=== PATIENT | female | born 1960 | race American Indian/Alaskan Native ===

== ENCOUNTER 2018-02-17 22:42 | Emergency (ER) | payer OTHER ==
[2018-02-18 01:01] LABS: Basophils # (Auto) 0.1 K/mm3 (0.0-0.1); Basophils % (Auto) 0.6 % (0.0-1.8); Eosinophils # (Auto) 0.6 K/mm3 (0.0-0.4); Eosinophils % (Auto) 6.1 % (0.0-4.3); Hematocrit 33.9 % (30.3-42.9); Hemoglobin 10.9 gm/dl (10.1-14.3); Lymphocytes # (Auto) 3.2 K/mm3 (1.2-5.4); Mean Corpuscular HGB Conc 32 % (30-34); Mean Corpuscular Volume 77 fl (79-97); Monocytes # (Auto) 0.6 K/mm3 (0.0-0.8); Monocytes % (Auto) 6.5 % (0.0-7.3); Platelet Count 309 K/mm3 (140-440); Red Blood Count 4.43 M/mm3 (3.65-5.03); Red Cell Distribution Width 18.3 % (13.2-15.2)
[2018-02-18 01:04] LABS: Bilirubin,Urine NEG (Negative); Blood,Urine NEG (Negative); Color,Urine Yellow (Yellow); Mucus,Urine FEW /HPF; Protein,Urine <15 mg/dL mg/dL (Negative); RBC,Urine < 1.0 /HPF (0.0-6.0); Urobilinogen,Urine < 2.0 mg/dL (<2.0)
[2018-02-18 01:11] LABS: Alanine Aminotransferase 25 units/L (7-56); Albumin 3.8 g/dL (3.9-5); BUN/Creatinine Ratio 22; Blood Urea Nitrogen 13 mg/dL (7-17); Calcium 9.3 mg/dL (8.4-10.2); Hemolysis Index 10; Lipase 24 units/L (13-60)
[2018-02-18 01:18] LABS: INR 0.84 (0.87-1.13); Mean Corpuscular Hemoglobin 25 pg (28-32); Partial Thromboplastin Time 29.7 Sec. (24.2-36.6)
[2018-02-18 01:20] LABS: WBC,Urine < 1.0 /HPF (0.0-6.0)
--- NOTE | 2018-02-18 08:15 | Emergency Department Report ---
ED Abdominal Pain HPI - General Chief Complaint: Abdominal Pain Stated Complaint: ABDOMINAL PAIN Time Seen by Provider: 02/18/18 08:05 Source: family Mode of arrival: Ambulatory Limitations: Language Barrier, Other - History of Present Illness Initial Comments: This is a patient that is poorly verbal and recently transferred home from a nursing facility. She had a previous G-tube removed and a history of a related fistula which essentially closed. She's had a hysterectomy and another upper abdominal surgery unknown nature to her daughter. She presented to the emergency department today, she was rubbing her chest and abdomen and complaining of pain. She cannot speak in full sentences however she does point to her abdomen when asked where she is hurting. She is basically able to say abdomen but not provide any more history beyond this. She has not been vomiting. There has been no fever or chills. She's had no diarrhea or change in her bowel habits. There's been no observed shortness of breath or complaint thereof. MD Complaint: abdominal pain Severity scale (0 -10): 10 - Related Data Previous Rx's Medication Instructions Recorded Last Taken Type Famotidine [Pepcid] 20 mg PO BID #30 tablet 02/18/18 Unknown Rx traMADol [Ultram] 50 mg PO Q6HR PRN #20 tablet 02/18/18 Unknown Rx Allergies Allergy/AdvReac Type Severity Reaction Status Date / Time No Known Allergies Allergy Unverified 02/17/18 23:28 ED Review of Systems ROS: Stated complaint: ABDOMINAL PAIN Other details as noted in HPI Comment: Unobtainable due to pts medical conditions ED Past Medical Hx - Past Medical History Previous Medical History?: Yes Hx Hypertension: Yes Hx CVA: Yes (aphasic, Left side tremors, Dysphagia) Hx Heart Attack/AMI: Yes (Stents?) Hx Diabetes: Yes Hx GERD: Yes Hx Psychiatric Treatment: Yes (depression, schizo affective) Additional medical history: AFIB, Lives with sister who takes care of her, Abdominal Fistula, Takes Plavix and ASA - Surgical History Past Surgical History?: Yes Additional Surgical History: Abdominal Fistula with clips placed 2016 - Social History Smoking Status: Former Smoker Substance Use Type: None - Medications Home Medications: Home Medications Medication Instructions Recorded Confirmed Last Taken Type Famotidine [Pepcid] 20 mg PO BID #30 tablet 02/18/18 Unknown Rx traMADol [Ultram] 50 mg PO Q6HR PRN #20 tablet 02/18/18 Unknown Rx ED Physical Exam - General Limitations: Language Barrier (dysarthric) General appearance: alert, in no apparent distress - Head Head exam: Present: atraumatic, normocephalic - Eye Eye exam: Present: normal appearance - ENT ENT exam: Present: mucous membranes moist - Neck Neck exam: Present: normal inspection - Respiratory Respiratory exam: Present: normal lung sounds bilaterally. Absent: respiratory distress - Cardiovascular Cardiovascular Exam: Present: regular rate, normal rhythm. Absent: systolic murmur, diastolic murmur, rubs, gallop - GI/Abdominal GI/Abdominal exam: Present: soft, normal bowel sounds. Absent: distended, tenderness, guarding, rebound, rigid - Extremities Exam Extremities exam: Present: normal inspection - Back Exam Back exam: Present: normal inspection - Neurological Exam Neurological exam: Present: alert, CN II-XII intact (as testable), other (no acute focal deficit) - Psychiatric Psychiatric exam: Present: normal mood, flat affect - Skin Skin exam: Present: warm, dry, intact, normal color. Absent: rash ED Course Vital Signs 02/17/18 02/17/18 02/17/18 22:49 23:03 23:40 Temperature 98.6 F Pulse Rate 79 95 H 79 Respiratory 18 Rate Blood Pressure 139/90 96/47 139/80 Blood Pressure [Left] O2 Sat by Pulse 96 100 96 Oximetry 02/18/18 02/18/18 02/18/18 07:58 08:00 08:08 Temperature 98.3 F Pulse Rate 77 Respiratory 21 Rate Blood Pressure Blood Pressure 156/87 [Left] O2 Sat by Pulse 100 98 Oximetry 02/18/18 02/18/18 02/18/18 08:09 08:16 08:30 Temperature Pulse Rate 78 71 Respiratory 21 15 12 Rate Blood Pressure 156/87 156/87 Blood Pressure [Left] O2 Sat by Pulse 98 99 100 Oximetry 02/18/18 02/18/18 02/18/18 08:46 09:03 09:16 Temperature Pulse Rate 79 97 H 79 Respiratory 14 20 Rate Blood Pressure 156/87 156/87 156/87 Blood Pressure [Left] O2 Sat by Pulse 98 97 98 Oximetry 02/18/18 02/18/18 02/18/18 09:30 10:00 11:00 Temperature Pulse Rate 74 Respiratory 13 Rate Blood Pressure 156/87 128/75 125/78 Blood Pressure [Left] O2 Sat by Pulse 96 96 97 Oximetry - Reevaluation(s) Reevaluation #1: Patient essentially rested comfortably and did not require significant analgesia. She remained hemodynamically stable. Her laboratory testing did not identify any acute abnormality. She is mildly anemic but otherwise 3 troponins were negative and a double contrasted CT of the abdomen and pelvis was negative. The patient is appropriate for outpatient follow-up and referral. 02/18/18 12:50 ED Medical Decision Making - Lab Data Result diagrams: 02/18/18 00:24 02/18/18 00:24 Laboratory Results - last 24 hr 02/18/18 02/18/18 02/18/18 00:24 00:24 00:24 WBC 9.2 RBC 4.43 Hgb 10.9 Hct 33.9 MCV 77 L MCH 25 L MCHC 32 RDW 18.3 H Plt Count 309 Lymph % (Auto) 35.0 [place] % (Auto) 6.5 Eos % (Auto) 6.1 H Baso % (Auto) 0.6 Lymph # 3.2 [place] # 0.6 Eos # 0.6 H Baso # 0.1 Seg Neutrophils % 51.8 Seg Neutrophils # 4.7 PT 11.9 L INR 0.84 L APTT 29.7 Sodium 142 Potassium 3.7 Chloride 102.6 Carbon Dioxide 23 Anion Gap 20 BUN 13 Creatinine 0.6 L Estimated GFR > 60 BUN/Creatinine Ratio 22 Glucose 71 Calcium 9.3 Total Bilirubin 0.20 AST 35 ALT 25 Alkaline Phosphatase 109 Troponin T Total Protein 6.6 Albumin 3.8 L Albumin/Globulin Ratio 1.4 Lipase 24 Urine Color Urine Turbidity Urine pH Ur Specific [place] Urine Protein Urine Glucose (UA) Urine Ketones Urine Blood Urine Nitrite Urine Bilirubin Urine Urobilinogen Ur Leukocyte Esterase Urine WBC (Auto) Urine RBC (Auto) Urine Mucus 02/18/18 02/18/18 02/18/18 00:24 00:29 03:17 WBC RBC Hgb Hct MCV MCH MCHC RDW Plt Count Lymph % (Auto) [place] % (Auto) Eos % (Auto) Baso % (Auto) Lymph # [place] # Eos # Baso # Seg Neutrophils % Seg Neutrophils # PT INR APTT Sodium Potassium Chloride Carbon Dioxide Anion Gap BUN Creatinine Estimated GFR BUN/Creatinine Ratio Glucose Calcium Total Bilirubin AST ALT Alkaline Phosphatase Troponin T < 0.010 < 0.010 Total Protein Albumin Albumin/Globulin Ratio Lipase Urine Color Yellow Urine Turbidity Clear Urine pH 6.0 Ur Specific [place] 1.010 Urine Protein <15 mg/dl Urine Glucose (UA) Neg Urine Ketones Neg Urine Blood Neg Urine Nitrite Neg Urine Bilirubin Neg Urine Urobilinogen < 2.0 Ur Leukocyte Esterase Neg Urine WBC (Auto) < 1.0 Urine RBC (Auto) < 1.0 Urine Mucus Few 02/18/18 05:42 WBC RBC Hgb Hct MCV MCH MCHC RDW Plt Count Lymph % (Auto) [place] % (Auto) Eos % (Auto) Baso % (Auto) Lymph # [place] # Eos # Baso # Seg Neutrophils % Seg Neutrophils # PT INR APTT Sodium Potassium Chloride Carbon Dioxide Anion Gap BUN Creatinine Estimated GFR BUN/Creatinine Ratio Glucose Calcium Total Bilirubin AST ALT Alkaline Phosphatase Troponin T < 0.010 Total Protein Albumin Albumin/Globulin Ratio Lipase Urine Color Urine Turbidity Urine pH Ur Specific [place] Urine Protein Urine Glucose (UA) Urine Ketones Urine Blood Urine Nitrite Urine Bilirubin Urine Urobilinogen Ur Leukocyte Esterase Urine WBC (Auto) Urine RBC (Auto) Urine Mucus - EKG Data -: EKG Interpreted by Or EKG shows normal: sinus rhythm, axis, intervals, QRS complexes, ST-T waves Rate: normal - EKG Data Interpretation: nonspecific ST-T wave adamaris (mild) - Radiology Data Radiology results: report reviewed Critical care attestation.: If time is entered above; I have spent that time in minutes in the direct care of this critically ill patient, excluding procedure time. ED Disposition Clinical Impression: Abdominal pain Qualifiers: Abdominal location: generalized Qualified Code(s): R10.84 - Generalized abdominal pain Anemia Qualifiers: Anemia type: unspecified type Qualified Code(s): D64.9 - Anemia, unspecified Disposition: DC-01 TO HOME OR SELFCARE Is pt being admited?: No Does the pt Need Aspirin: No Condition: Stable Instructions: Abdominal Pain (ED), Iron Rich Diet (ED), Anemia (ED) Additional Instructions: The patient's CT examination today was normal. She is mildly chronically anemic. An iron rich diet is recommended and/or supplemental iron. Further evaluation with a GI doctor is recommended. I am referring her to Dr. Gaspar is a primary care doctor and Dr. Barrientos a GI specialist doctor. Return to the emergency department any acute change or problem as needed. Prescriptions: Famotidine [Pepcid] 20 mg PO BID #30 tablet traMADol [Ultram] 50 mg PO Q6HR PRN #20 tablet PRN Reason: Pain Referrals: PRIMARY CARE, [Primary Care Provider] - 3-5 Days JUA NRAMON BARRIENTOS MD [Staff Physician] - 3-5 Days ELISABET MOLINA MD [Staff Physician] - 2-3 Days Time of Disposition: 12:56
[2018-02-18] MEDS ORDERED: MORPHINE IV ONE (08:47)
[2018-02-18] MEDS ORDERED: NACL 0.9% 1000 ML 1,000 ML IV ONE (08:47)
[2018-02-18] MEDS ORDERED: ZOFRAN IV ONE (08:47)
[2018-02-18] MEDS ORDERED: ATIVAN IV ONE (08:47)
--- NOTE | 2018-02-18 11:29 | Cat Scan Report ---
FINAL REPORT EXAM: CT ABDOMEN PELVIS W CON HISTORY: abd pain h/o fistula and g tube COMPARISON: None. TECHNIQUE: Multiple contiguous axial images were obtained from the lung bases to the pubic symphysis after administration of IV and oral contrast. Reformatted sagittal and coronal images were available for review. FINDINGS: Lung bases: Minimal dependent atelectasis. Visualized heart and mediastinum: Normal. Liver: Normal. Spleen: Normal. Pancreas: Normal. Gallbladder and Biliary Tree: No calcified gallstones. No biliary ductal dilatation. Adrenal glands: Normal. Kidneys: There an extrarenal pelvis bilaterally. There is symmetric enhancement to both kidneys. There is a simple appearing 2.9 centimeters cyst the interpolar region of the left kidney. Bladder: Normal. Pelvic organs: The uterus has been surgically removed. Bowel: Gastrostomy tube is in place. No focal wall thickening. No evidence of obstruction. Oral contrast advances to the distal ileum. The appendix is not clearly identified and may have been removed. There are no pericecal inflammatory changes. Peritoneum: No significant mesenteric adenopathy. No free air or free fluid. Vasculature: Abdominal aorta is normal in caliber without evidence of aneurysm. Scattered atherosclerotic calcifications and plaques. Normal appearance of the portal venous system and the inferior vena cava. Bones and soft tissues: No suspicious osseous lesions. Diffuse osteopenia. No acute fracture or dislocation.Midline abdominal scar is visualized. IMPRESSION: No acute intra-abdominal pathology. No evidence of bowel obstruction.
[2018-02-18 13:52] VITALS: BP 113/71
== END 2018-02-18 13:15 | disposition home or self-care (01) ==
LOC: ED 22:42
DX: D64.9 Anemia, unspecified (principal); R10.9 Unspecified abdominal pain; I10 Essential (primary) hypertension; F32.9 Major depressive disorder, single episode, unspecified; E11.9 Type 2 diabetes mellitus without complications; K21.9 Gastro-esophageal reflux disease without esophagitis; I25.2 Old myocardial infarction; Z87.891 Personal history of nicotine dependence; Z86.73 Personal history of transient ischemic attack (TIA), and cerebral infarction without residual deficits; Z90.710 Acquired absence of both cervix and uterus
CPT/HCPCS: 36415; 74177; 80053; 81001; 83690; 84484; 85025; 85610; 85730; 93005; 93010; 96361; 96374; 96375; 99284; J2060; J2270; J2405; J7030; Q9967

== ENCOUNTER 2018-08-05 06:15 | Day surgery (SDC) | payer MEDICAID, SELFPAY ==
--- NOTE | 2018-08-05 07:51 | Anesthesia Consultation ---
Anesthesia Consult and Med Hx Date of service: 08/05/18 - Airway Anesthetic Teeth Evaluation: Poor ROM Head & Neck: Adequate Mental/Hyoid Distance: Adequate Mallampati Class: Class II Intubation Access Assessment: Probably Good - Pulmonary Exam CTA: Yes - Cardiac Exam Cardiac Exam: RRR - Pre-Operative Health Status ASA Pre-Surgery Classification: ASA3 Proposed Anesthetic Plan: MAC - Cardiovascular System Hx Hypertension: Yes Hx Coronary Artery Disease: Yes Hx Heart Attack/AMI: Yes Hx Percutaneous Transluminal Coronary Angioplasty (PTCA): Yes (2009) Hx Cardia Arrhythmia: Yes (afib) - Central Nervous System Hx Seizures: Yes ("many years ago") CVA: Yes (2012, left hand spastic, general weak) Hx Psychiatric Problems: Yes (tardive dyskinsia ) - Gastrointestinal Hx Gastroesophageal Reflux Disease: Yes - Endocrine Hx Non-Insulin Dependent Diabetes: Yes
--- NOTE | 2018-08-05 07:51 | Anesthesia Day of Surgery ---
Anesthesia Day of Surgery - Day of Surgery Patient Examined: Yes Patient H&P Reviewed: Yes Patient is NPO: Yes Beta Blockers: Yes
[2018-08-05] MEDS ORDERED: NACL 0.9% 1000 ML 1,000 ML IV SCH (08:00)
[2018-08-05] MEDS ORDERED: DIPRIVAN 10 MG/ML IV ONE (09:17)
--- NOTE | 2018-08-05 09:49 | Short Stay Summary ---
Short Stay Documentation Date of service: 08/05/18 Narrative H&P: The patient presents for diagnostic EGD for persistent abdominal pain and the possibility of a retained G tube bumper by CT scan. - History Past Medical History: CAD, diabetes, GERD, stroke, other (dementia, history of CVA, ) Past Surgical History: Other (Gastrostomy) Social history: lives with family, no smoking, no alcohol abuse, no prescription drug abuse - Allergies and Medications Current Medications: Allergies No Known Allergies Allergy (Verified 08/05/18 07:57) Home Medications Medication Instructions Recorded Confirmed Last Taken Type Adult Low Dose Aspirin EC 81 mg PO DAILY 08/05/18 08/05/18 08/03/18 History AtorvaSTATin 40 mg PO DAILY 08/05/18 08/05/18 08/03/18 History Depakote 250 mg PO BID 08/05/18 08/05/18 08/03/18 History Lisinopril 1 tab PO DAILY 08/05/18 08/05/18 08/03/18 History Metoprolol 25 mg PO BID 08/05/18 08/05/18 08/03/18 History Plavix 75 mg PO DAILY 08/05/18 08/05/18 08/02/18 History Ranitidine HCl 150 mg PO BID 08/05/18 08/05/18 08/03/18 History metFORMIN 1,000 mg PO BID 08/05/18 08/05/18 08/03/18 History Active Medications Sodium Chloride (Nacl 0.9% 1000 Ml) 1,000 mls @ 50 mls/hr IV DIRECT KIRSTEN Last Admin: 08/05/18 08:35 Dose: 50 mls/hr - Physical exam General appearance: no acute distress, well-nourished Integumentary: no rash, no growths, no abnormal pigmentation HEENT: Atraumatic, PERRLA, EOMI, Mucous membr. moist/pink Lungs: Clear to auscultation, Normal air movement Breasts: deferred Heart: Regular rate, Normal S1, Normal S2, No murmurs Gastrointestinal: normoactive bowel sounds, tenderness (around a small fistula at the old G tube site), no distended, no masses, no organomegaly Female Genitourinary: deferred Rectal Exam: deferred Extremities: no ischemia, pulses intact, pulses symmetrical, No edema, Full ROM Neurological: Normal gait, Normal speech, Strength at 5/5 X4 ext, Normal tone, Sensation intact, Cranial nerves 3-12 NL, Other (speech is slow and cognition moderately impaired.) - Brief post op/procedure progress note Date of procedure: 08/05/18 Findings: see dictated report Estimated blood loss: none Pathology: none Condition: stable - Disposition Condition at discharge: Good Disposition: DC-01 TO HOME OR SELFCARE - Discharge Diagnoses (1) Epigastric pain Status: Acute (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
--- NOTE | 2018-08-05 09:56 | Operative Report ---
Operative Report Operative Report: Date of procedure: 08/05/2018 Procedure: Esophagogastroduodenoscopy Preprocedure diagnosis: Abdominal pain epigastric. Gastrocutaneous fistula and suspected retained G-tube bumper Post procedure diagnosis: Retained G-tube bumper was seen internally with sutures and a metallic clip Endoscopist: Dr. Guido Anesthesia: Monitored anesthesia care per anesthesia department Medications: Propofol per anesthesia Estimated blood loss: 0 After careful discussion of the nature and purpose of the procedure as well as details the technique risks benefits and alternatives consent was obtained. The patient was placed in the left lateral decubitus position and medicated per anesthesia. The tip of the geolad EQ 570 video scope was passed per orum under direct vision into the esophagus and advanced into the stomach and descending duodenum. The descending duodenum the duodenal bulb and pylorus were symmetrical and normal. The scope was withdrawn into the stomach and the stomach then gently insufflated with air. The antrum was normal. On the anterior wall of the distal body there were 2 areas were abnormal. The tip of the G-tube with sutures was noted and an adjacent area with an apparent over the scope type clip which appeared to be encompassing a portion of an old G- tube. No visible G-tube bumper was evident however. The clip was briefly removed with the sepsis and it was apparent that the clip was not attached to the mucosa but to the tip of the old G-tube fragment. This was not felt to be removable due to apparent sutures. The stomach was further insufflated and the scope was then retroflexed and partially withdrawn. The cardia, fundus, and body of the stomach were otherwise within normal limits and easily distensible.The scope was then withdrawn in the forward position. The esophagogastric junction was at 38 cm. The esophageal body was normal throughout. The procedure was was well tolerated and the patient was observed in recovery. Impressions: Retained portion of a G-tube anchored with sutures and a metallic clip attached to a fragment of a G-tube in an adjacent area. I suspect the 2 areas are connected fragments of an old gastrostomy tube. Plan: Surgical evaluation for removal of the anchored G-tube fragment by gastrotomy or laparoscopic approach. Electronically signed: Rashel Guido MD
[2018-08-05] MEDS ORDERED: WATER FOR IRRIG STERILE IR ONE (10:04)
[2018-08-05 10:26] VITALS: BP 108/75
== END 2018-08-05 06:16 | disposition home or self-care (01) ==
LOC: GIO 06:15
PROVIDERS: ATTEND Internal Medicine Gastroenterology
DX: R10.13 Epigastric pain (principal); R93.3 Abnormal findings on diagnostic imaging of other parts of digestive tract; K31.6 Fistula of stomach and duodenum; I25.10 Atherosclerotic heart disease of native coronary artery without angina pectoris; I25.2 Old myocardial infarction; I48.91 Unspecified atrial fibrillation; I10 Essential (primary) hypertension; K21.9 Gastro-esophageal reflux disease without esophagitis; E11.9 Type 2 diabetes mellitus without complications; Z98.890 Other specified postprocedural states; Z87.891 Personal history of nicotine dependence; Z79.84 Long term (current) use of oral hypoglycemic drugs; Z79.899 Other long term (current) drug therapy; Z86.73 Personal history of transient ischemic attack (TIA), and cerebral infarction without residual deficits
CPT/HCPCS: 43235; 82962; J2704; J7030

== ENCOUNTER 2019-07-27 09:20 | Outpatient (CLI) | payer MEDICAID | END 2019-07-27 09:21 | disposition home or self-care (01) | LOC: WOUND 09:20 | PROVIDERS: ATTEND Surgery | DX: T81.89XD Other complications of procedures, not elsewhere classified, subsequent encounter (principal); E10.9 Type 1 diabetes mellitus without complications; Z86.73 Personal history of transient ischemic attack (TIA), and cerebral infarction without residual deficits; Z87.891 Personal history of nicotine dependence; Y83.8 Other surgical procedures as the cause of abnormal reaction of the patient, or of later complication, without mention of misadventure at the time of the procedure | CPT/HCPCS: 99213; G0463 ==

== ENCOUNTER 2019-08-17 09:10 | Outpatient (CLI) | payer MEDICAID ==
[2019-08-17] MEDS ORDERED: XYLOCAINE TOPICAL 4% TP ONE (09:30)
== END 2019-08-17 09:11 | disposition home or self-care (01) ==
LOC: WOUND 09:10
PROVIDERS: ATTEND Surgery
DX: T81.89XD Other complications of procedures, not elsewhere classified, subsequent encounter (principal); E10.9 Type 1 diabetes mellitus without complications; Z87.891 Personal history of nicotine dependence; Z86.73 Personal history of transient ischemic attack (TIA), and cerebral infarction without residual deficits; X58.XXXD Exposure to other specified factors, subsequent encounter
CPT/HCPCS: 99213; G0463; G0463-25

== ENCOUNTER 2019-08-24 09:57 | Outpatient (CLI) | payer MEDICAID ==
[2019-08-24] MEDS ORDERED: SILVER NITRATE APPLICATOR 1 EA TP ONE (10:18)
[2019-08-24] MEDS ORDERED: NEOMY 3.5 MG/BACIT 400 UNITS/POLY B 5000 UNITS/GM OINT PACKET TP ONE (10:21)
[2019-08-24] MEDS ORDERED: LIDOCAINE (4%) 40 MG/ML TOPICAL SOLN 50 ML BOTTLE TP ONE (10:30)
[2019-08-24] MEDS ORDERED: NEOMY 3.5 MG/BACIT 400 UNITS/POLY B 5000 UNITS OINT 15 GM TP SCH (14:00)
== END 2019-08-24 09:58 | disposition home or self-care (01) ==
LOC: WOUND 09:57
PROVIDERS: ATTEND Surgery
DX: T81.89XD Other complications of procedures, not elsewhere classified, subsequent encounter (principal); E10.9 Type 1 diabetes mellitus without complications; Z86.73 Personal history of transient ischemic attack (TIA), and cerebral infarction without residual deficits; Z87.891 Personal history of nicotine dependence; Y83.8 Other surgical procedures as the cause of abnormal reaction of the patient, or of later complication, without mention of misadventure at the time of the procedure
CPT/HCPCS: 99214; A6250; G0463